=== PATIENT | female | born 2005 | race Two or more races ===

== ENCOUNTER 2025-01-24 19:32 | Emergency (ER) | payer MEDICAID, OTHER ==
[~2025-01-24] VITALS: Ht 167.6 cm; Wt 85.8 kg
[2025-01-24 19:40] VITALS: BP 123/57; PULSE 87; RESP 20; TEMP 98.4
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
[2025-01-24] MEDS: KETOROLAC TROMETH 60MG/2ML VIAL IM ONE (21:43)
[2025-01-24 21:51] VITALS: O2SAT 0
[2025-01-24] MEDS ORDERED: IBU600T PO (22:50)
[2025-01-24] MEDS ORDERED: CYCL-838 PO (22:50)
== END 2025-01-24 22:50 | disposition home or self-care (01) ==
LOC: ER 19:37
DX: S16.1XXA Strain of muscle, fascia and tendon at neck level, initial encounter (principal); V89.2XXA Person injured in unspecified motor-vehicle accident, traffic, initial encounter; Y93.I9 Activity, other involving external motion; Y92.488 Other paved roadways as the place of occurrence of the external cause; Y99.8 Other external cause status
CPT/HCPCS: 72040; 96372; 99283; J1885